=== PATIENT | female | born 1960 | race Hispanic/Latino ===

== ENCOUNTER → 2019-12-31 | Day surgery (SDC) | payer BC, OTHER ==
[~2019-12-31] MED LIST: FENTANYL CITRATE/PF 100MCG/2 ML INJ ONE; LIOTHYRONINE S25 MCG PO; MIDAZOLAM HCL 2 MG/2 ML VIAL ONE; SYNTHROID50 MCG PO
[2019-12-31 11:35] VITALS: BP 103/62
== END | disposition home or self-care (01) ==
LOC: OR 09:54
PROVIDERS: ATTEND Internal Medicine
DX: Z12.11 Encounter for screening for malignant neoplasm of colon (principal); K62.1 Rectal polyp; K21.9 Gastro-esophageal reflux disease without esophagitis; K57.30 Diverticulosis of large intestine without perforation or abscess without bleeding; K64.0 First degree hemorrhoids; E66.9 Obesity, unspecified; M54.9 Dorsalgia, unspecified; M19.90 Unspecified osteoarthritis, unspecified site; E03.9 Hypothyroidism, unspecified; Z01.810 Encounter for preprocedural cardiovascular examination; Z01.812 Encounter for preprocedural laboratory examination; Z11.59 Encounter for screening for other viral diseases; Z68.30 Body mass index [BMI] 30.0-30.9, adult
CPT/HCPCS: 45380; 87635; 93005; J2250; J3010